=== PATIENT | female | born 1935 | race Caucasian/White ===

== ENCOUNTER → 2016-10-26 | Outpatient (CLI) | payer MEDICARE ==
[~2016-10-26] MED LIST: AMIODARONE HCL100 MG PO; CALCIUM 500 +1 EAC2 PO; FISH OIL 1,0001 CAP PO; GLUCOSAMINE & C1 CAP PO; LASIX20 MG PO; LEVOTHROID50 MCG PO; LEVOTHYROXINE25 MC1 PO; LORTAB 5/500 TA1 TA2 PO; MAGNESIUM500 MG PO; MULTIVITAMIN1 UDCAP PO; PRADAXA150 MG PO; PROTONIX PO; VIT C PO; VIT E PO
[2016-10-26 14:34] LABS: BUN/CREATININE RATIO 22.5; CALCIUM SERUM 8.9 mg/dL (8.4-10.2); CREATININE SERUM 1.2 mg/dL (0.6-1.4); GLOM FILT RATE Estimated 41.8 mL/min (>60); POTASSIUM 3.9 mmol/L (3.5-5.1)
== END | disposition home or self-care (01) ==
LOC: CLAB 13:33
PROVIDERS: Internal Medicine
DX: E87.5 Hyperkalemia (principal)
CPT/HCPCS: 36415; 80048